=== PATIENT | male | born 2000 | race Caucasian/White ===

== ENCOUNTER 2018-08-16 15:23 | Emergency (ER) | payer OTHER ==
[~2018-08-16] VITALS: Ht 180.3 cm; Wt 60.8 kg
[~2018-08-16 15:23] MED LIST: ACETAMINOPHEN-1 EAC1 PO; IBUPROFEN 600600 M1 PO; NOHOMEMEDICATIONS; NORCO 5-325 TA1 EACH PO; ZOFRAN4 MG PO
[2018-08-16] MEDS ORDERED: AMOXICILLIN 50500 MG PO (15:27)
[2018-08-16 16:01] VITALS: BP 121/65
== END 2018-08-16 16:01 | disposition home or self-care (01) ==
LOC: M.ERS 15:23
DX: J02.9 Acute pharyngitis, unspecified (principal); Z90.49 Acquired absence of other specified parts of digestive tract; Z88.6 Allergy status to analgesic agent; Z88.8 Allergy status to other drugs, medicaments and biological substances

== ENCOUNTER 2018-10-03 11:28 | Emergency (ER) | payer OTHER ==
[~2018-10-03] VITALS: Ht 182.9 cm; Wt 59.9 kg
[~2018-10-03 11:28] MED LIST changes: +AMOXICILLIN 50500 MG PO
[2018-10-03 11:39] LABS: URINE BILIRUBIN NEGATIVE (Negative); URINE BLOOD 1+ (Negative); URINE CLARITY CLEAR; URINE COLOR YELLOW; URINE GLUCOSE-RANDOM NEGATIVE (Negative); URINE KETONES NEGATIVE (Negative); URINE LEUKOCYTES-REFLEX NEGATIVE (Negative); URINE NITRITE-REFLEX NEGATIVE (Negative); URINE PROTEIN TRACE (Negative); URINE UROBILINOGEN 0.2 E.U./dl (0.2-1.0)
[2018-10-03 11:51] LABS: BACTERIA-REFLEX 1-9 Few /HPF (None Seen); CASTS None Seen /LPF (None Seen); CRYSTALS None Seen /LPF (None Seen); MUCUS None Seen strn/LPF (None Seen); SQUAMOUS 0-3 Few /LPF (0-3); URINE RBC 3-10 Few /HPF (0-2); URINE WBC-REFLEX 0-5 Rare /HPF (0-5)
[2018-10-03 11:54] LABS: ABSOLUTE BASOPHILS 0.1 thou/uL (0.0-0.2); ABSOLUTE EOSINOPHILS 0.3 thou/uL (0.0-0.7); ABSOLUTE LYMPHOCYTES 1.3 thou/uL (0.8-5.3); ABSOLUTE MONOCYTES 0.6 thou/uL (0.0-1.2); BASOPHILS 0.7 %; EOSINOPHILS 3.9 %; HEMATOCRIT 47.2 % (42.0-52.0); HEMOGLOBIN 16.8 gm/dL (14.0-18.0); LYMPHOCYTES 18.7 %; MCH 32.4 pg (26.0-34.0); MCHC 35.6 g/dL (28.0-37.0); MCV 91.1 fL (80.0-100.0); MPV 8.5 fl. (7.2-11.1); NUCLEATED RBCS 0 /100WBC; PLATELET COUNT* 218 thou/uL (150-400); POLYS 68.7 %; RBC 5.19 mil/uL (4.50-6.00); RDW-CV 12.2 % (10.5-14.5); WBC 7.2 thou/uL (4.0-11.0)
[2018-10-03 12:14] LABS: ALBUMIN 4.7 g/dL (3.4-5.0); CALCIUM 9.9 mg/dL (8.5-10.1); POTASSIUM 4.1 mmol/L (3.5-5.1); TOTAL BILIRUBIN 1.2 mg/dL (<0.1-1.0); TOTAL PROTEIN 8.4 g/dL (6.4-8.2)
[2018-10-03] MEDS ORDERED: BENTYL 10 MG CA10 M1 PO (13:12)
[2018-10-03] MEDS ORDERED: TRAMADOL 50 MG50 MG PO (13:12)
[2018-10-03 13:29] VITALS: BP 109/49
== END 2018-10-03 13:32 | disposition home or self-care (01) ==
LOC: M.ERS 11:28
PROVIDERS: Nurse Practitioner Family
DX: R10.33 Periumbilical pain (principal); R10.31 Right lower quadrant pain; R11.2 Nausea with vomiting, unspecified; Z88.5 Allergy status to narcotic agent; Z88.8 Allergy status to other drugs, medicaments and biological substances; Z90.49 Acquired absence of other specified parts of digestive tract